=== PATIENT | male | born 1995 | race Caucasian/White ===

== ENCOUNTER 2016-11-14 19:23 | Emergency (ER) | payer OTHER ==
[2016-11-14 19:29] VITALS: BP 160/99; TEMP 98.2
--- NOTE | 2016-11-14 19:33 | EDPHY ---
H & P Stated Complaint: accidently took extra dose of lexapro, thinks he has serotonin syndrome HPI/ROS: CHIEF COMPLAINT: HISTORY OF PRESENT ILLNESS: The patient is a 21 y/o male who complains of taking an extra Lexapro this morning and is concerned about a serotonin syndrome. He normally takes 30mg of Lexapro. He has a history of OCD, panic attacks, and alcoholism. Last night he drank an excess of alcohol, 8 shots, and subsequently felt sweaty, shaky, and had a subjective fast heart rate. This morning he also reports taking 0.5mg Ativan and 8 Tylenol pills, but is unsure of their size. With further discussion , he is not certain how many tylenol pills he might have taken and is not sure if he took extra lexapro. He has not taken anything for over four hours. He has been feeling like he was on the border of a panic attack all day. He currently has a headache, nausea, and feels anxious. He denies any attempt at self harm. He notes his drinking habit has increased since moving to [place], but he is enrolled in therapy ([facility]) which will be starting next week. Denies abdominal pain, chest pain, weakness, paresthesias, or other pertinent symptoms. REVIEW OF SYSTEMS: A ten point review of systems was performed and is negative with the exception of the items mentioned in the HPI. Past medical history: Panic attacks Anxiety OCD Alcohol abuse Past surgical history: Denies Social history: Student at Originally from [place] Occasional smoker General Appearance: Alert. Anxious. Vital signs reviewed. Blood pressure 160/ 99, heart rate 106. Eyes: Pupils equal and round, no pupillary dilataiton, no conjunctival injection, no discharge. Anicteric. ENT, Mouth: Mucous membranes are appropriately moist, no oropharyngeal erythema or edema. Neck: No lymphadenopathy, supple. Respiratory: Lungs are clear to auscultation; no wheezes, rales, or rhonchi. Cardiovascular: Regular rate and rhythm; no murmur, rub, or gallop. Gastrointestinal: Abdomen is soft and nontender, no masses or organomegaly, bowel sounds normal. Skin: Warm and dry, no rashes on exposed skin, normal color. No diaphoresis. No flushing. Back: Nontender to palpation over the thoracolumbar spine. No CVAT. Extremities: No lower extremity edema, no calf tenderness or swelling. Neurological: Alert and oriented. Moving all four extremities easily and equally. PERRL. No tremor. Normal reflexes, no LE clonus. Psychiatric: Normal affect. No agitation. - Personal History Current Tetanus Diphtheria and Acellular Pertussis (TDAP): Yes - Medical/Surgical History Hx Asthma: No Hx Chronic Respiratory Disease: No Hx Diabetes: No Hx Cardiac Disease: No Hx Renal Disease: No Hx Cirrhosis: No Hx Alcoholism: Yes Hx HIV/AIDS: No Hx Splenectomy or Spleen Trauma: No Other PMH: depression, anxiety, panic attack - Social History Smoking Status: Current some day smoker Constitutional: Initial Vital Signs Temperature (C) 36.8 C 11/14/16 19:25 Heart Rate 106 H 11/14/16 19:25 Respiratory Rate 18 11/14/16 19:25 Blood Pressure 160/99 H 11/14/16 19:25 O2 Sat (%) 97 11/14/16 19:25 O2 Delivery Mode Room Air Allergies/Adverse Reactions: No Known Allergies Allergy (Unverified 11/14/16 19:25) Home Medications: Medication Instructions Recorded Lexapro 11/14/16 Medical Decision Making ED Course/Re-evaluation: The patient is a 21 y/o male who presents with concern over taking an extra 30mg Lexapro dose this morning, after heavy drinking last night. His physical exam is normal. He does note he took 8 Tylenol pills, but is unsure of their size--it has been over four hours since he took tylenol. Plan on labs, IV, 1L IV NS, and 1mg IV Ativan. Tylenol level under 10. 2030: Reassessed patient and discussed laboratory results. He is feeling better. Heart rate under 100. I have reassured him that I am not worried about serotonin syndrome. He does not clinically have signs/sx of serotonin syndrome-- no flushing or diaphoresis, no fever, no tremor, no clonus, no agitation. I think he is suffering from anxiety. I have no reason to suspect NMS or anticholinergic toxicity. There is nothing to suggest infection. - Data Points Medications Given: Discontinued Medications Sodium Chloride (Ns) 1,000 mls @ 0 mls/hr IV EDNOW ONE; Wide Open PRN Reason: Protocol Stop: 11/14/16 19:44 Last Admin: 11/14/16 19:58 Dose: 1,000 mls Lorazepam (Ativan Injection) 1 mg IVP EDNOW ONE Stop: 11/14/16 19:44 Last Admin: 11/14/16 19:59 Dose: 1 mg Lorazepam (Ativan 1 Mg Prepack#4) 1 btl TAKEHOME EDNOW ONE Stop: 11/14/16 20:37 Last Admin: 11/14/16 21:06 Dose: 1 btl Departure - Departure Disposition: Home, Routine, Self-Care Clinical Impression: Anxiety Condition: Good Instructions: Lorazepam (By mouth), Anxiety (ED) Additional Instructions: I do not find evidence of serotonin syndrome and am not worried that you will develop serotonin syndrome. Continue with [facility]. Referrals: [facility] [Other] - As per Instructions AA Hotline [Outside] - As per Instructions Report Scribed for: Lorraine Clements Report Scribed by: Do Dorsey Date of Report: 11/14/16 Time of Report: 20:22 Physician Review and Approval Statement: 11/14/16 19:33 Portions of this note were transcribed by the electromedical equipment technician. I, Dr. Lorraine Clements, personally performed the history, physical exam, and medical decision- making; and confirmed the accuracy of the information in the transcribed note.
[2016-11-14] MEDS ORDERED: LORazepam 2 MG/ML INJ IVP ONE (19:43)
[2016-11-14] MEDS ORDERED: NS 1,000 ML IV ONE (19:43)
[2016-11-14 20:35] VITALS: PULSE 97; RESP 16; O2SAT 98
[2016-11-14] MEDS ORDERED: LORAZEPAM 1 MG PREPACK#4 BTL TAKEHOME ONE (20:36)
== END 2016-11-14 21:09 | disposition home or self-care (01) ==
DX: F41.9 Anxiety disorder, unspecified (principal); F17.200 Nicotine dependence, unspecified, uncomplicated; E86.9 Volume depletion, unspecified
CPT/HCPCS: 96374; G0480; J2060

== ENCOUNTER 2016-11-22 09:51 | Emergency (ER) | payer OTHER ==
[2016-11-22 09:56] VITALS: BP 144/87; PULSE 88; RESP 18; TEMP 98.1; O2SAT 100
--- NOTE | 2016-11-22 10:00 | EDPHY ---
H & P Stated Complaint: Needs refill alprazolam for panic attack;ran out a while ago Time Seen by Provider: 11/22/16 10:00 - Personal History Current Tetanus Diphtheria and Acellular Pertussis (TDAP): Yes - Medical/Surgical History Hx Asthma: No Hx Chronic Respiratory Disease: No Hx Diabetes: No Hx Cardiac Disease: No Hx Renal Disease: No Hx Cirrhosis: No Hx Alcoholism: Yes Hx HIV/AIDS: No Hx Splenectomy or Spleen Trauma: No Other PMH: depression, anxiety, panic attack - Social History Smoking Status: Former smoker Constitutional: Initial Vital Signs Temperature (C) 36.7 C 11/22/16 09:54 Heart Rate 88 11/22/16 09:54 Respiratory Rate 18 11/22/16 09:54 Blood Pressure 144/87 H 11/22/16 09:54 O2 Sat (%) 100 11/22/16 09:54 O2 Delivery Mode Room Air Allergies/Adverse Reactions: No Known Allergies Allergy (Verified 11/22/16 09:53) Home Medications: Medication Instructions Recorded Lexapro 11/14/16 ALPRAZolam [Xanax 1 MG (*)] 1 mg PO PRN PRN 11/22/16 ALPRAZolam [Xanax 1 MG (*)] 1 mg PO PRN PRN #20 tab 11/22/16 Medical Decision Making ED Course/Re-evaluation: CHIEF COMPLAINT: Panic attack HISTORY OF PRESENT ILLNESS: The patient is a 21-year-old male presenting with panic attack. The patient became concerned about his serotonin levels. The patient usually takes 1mg Alprazolam as needed for panic attacks. He ran out of Alprazolam and is unable to get a prescription refill because his psychiatrist is in [place]. Patient additionally takes Lexapro 30mg. REVIEW OF SYSTEMS: A 10 point review of systems was performed and is negative with the exception of the elements mentioned in the history of present illness. PHYSICAL EXAM: HR, BP, O2 Sat, RR. Temp noted General Appearance: Alert, well hydrated, appropriate, and non-toxic appearing. Head: Atraumatic without scalp tenderness or obvious injury Eyes: Pupils equal, round, reactive to light and accommodation, EOMI, no trauma , no injection. Ears: Clear bilaterally, no perforation, normal landmarks Nose: Atraumatic, no rhinorrhea, clear. Throat: There is no erythema or exudates, no lesions, normal tonsils, mucus membranes moist. Neck: Supple, 2+ carotid upstroke, nontender, no lymphadenopathy. Respiratory: No retractions, no distress, no wheezes, and no accessory muscle use. Lungs are clear to auscultation bilaterally. Cardiovascular: Regular rate and rhythm, no murmurs, rubs, or gallops. Bilateral carotid, radial, dorsalis pedis, and posterior tibial pulses intact. Good capillary refill all extremities. Gastrointestinal: Abdomen is soft, nontender, non-distended, no masses, no rebound, no guarding, no peritoneal signs. Musculoskeletal: Normal active ROM of all extremities, atraumatic. Neurological: Alert, appropriate, and interactive. The patient has normal DTRs and non-focal cranial nerves, motor, sensory, and cerebellar exam. Skin: No rashes, good turgor, no nodules on palpation. Past medical history: Anxiety Past surgical history: Denies. Family history: Noncontributory. Social history: [employer] student. DIFFERENTIAL DIAGNOSIS: The differential diagnosis for the patient's anxiety included but was not limited to panic attacks, medication side effect, drugs, and alcohol abuse. MEDICAL DECISION MAKING: Patient presents with panic attacks. Patient is out of Alprazolam and unable to get a refill because his psychiatrist is in [place]. Patient received 1mg Alprazolam in the ED. I will send him home with a prescription for Alprazolam. Patient received resources from case management to establish care with a local psychiatrist. Patient is feeling much better after Alprazolam. He would like to go home. Departure - Departure Disposition: Home, Routine, Self-Care Clinical Impression: Panic attack Condition: Good Instructions: Panic Attack (ED) Additional Instructions: Take Alprazolam as directed for recurrent symptoms. Please followup with the resources provided so you can establish care with a local psychiatrist. Referrals: [facility] [Other] - As per Instructions Prescriptions: ALPRAZolam [Xanax 1 MG (*)] 1 mg PO PRN PRN #20 tab PRN Reason: Anxiety
--- NOTE | 2016-11-22 10:29 | ASMTCMCOM ---
CM Note CM Note Notes: Spoke with patient about local mental health resources and ETOH abuse resources. Patient is a student at and moved here from [place] where his former psychiatrist is located. Patient has been out of his Xanax and experiencing anxiety and panic attacks. Patient was seen in the ED on 11/14 for similar anxiety/panic attack symptoms, in addition to ETOH abuse related symptoms. Today patient states he is in the [facility] program and doing "alright." He says he has support from his father who lives locally. Patient states he has established a counselor through student counseling services but has not established a psychiatrist who can continue to write his Xanax prescriptions. Patient was provided additional resources for [facility] and also [facility] and their [facility]. CM available for further assistance. Date Signed: 11/22/2016 10:28 AM Electronically Signed By:Vijaya Asher
== END 2016-11-22 10:25 | disposition home or self-care (01) ==
DX: F41.0 Panic disorder [episodic paroxysmal anxiety] (principal); Z87.891 Personal history of nicotine dependence